=== PATIENT | male | born 1990 | race Caucasian/White ===

== ENCOUNTER 2018-02-08 02:39 | Emergency (ER) | payer BC, OTHER ==
[~2018-02-08] VITALS: Ht 193 cm; Wt 120.0 kg
[2018-02-08 02:41] VITALS: BP 130/80
[2018-02-08] MEDS ORDERED: DIPH,PERTUSS(ACELL),TET VAC/PF 0.5 ML IM-VACC ONE ×2 (03:00→03:53)
[2018-02-08] MEDS ORDERED: SILVER SULF. CRM 1% , 25GM TP ONE (03:00)
[2018-02-08] MEDS ORDERED: SILVER SULF. CRM 1% , 25GM ONE (03:10)
[2018-02-08] MEDS ORDERED: IBUPROFEN 800 MG TABLET PO ONE (03:30)
[2018-02-08] MEDS ORDERED: IBUPROFEN 200 MG TABLET ONE (03:53)
== END 2018-02-08 04:30 | disposition home or self-care (01) ==
LOC: ED 04:28
DX: T25.122A Burn of first degree of left foot, initial encounter (principal); T31.0 Burns involving less than 10% of body surface; X19.XXXA Contact with other heat and hot substances, initial encounter; Y93.01 Activity, walking, marching and hiking; Y92.098 Other place in other non-institutional residence as the place of occurrence of the external cause; Y99.8 Other external cause status
CPT/HCPCS: 16020; 90471; 90715; 99284